=== PATIENT | male | born 1940 | race Caucasian/White ===

== ENCOUNTER → 2016-08-16 | Outpatient (CLI) | payer OTHER ==
[~2016-08-16] MED LIST: ASPI81TA28 PO; CALCTAB5 PO; CHOL200027 PO; IBUP-103 PO; SIMV40TA2 PO
[2016-08-16 13:20] VITALS: BP 145/80; PULSE 62; TEMP 36.9; O2SAT 93
--- NOTE | 2016-08-16 14:20 | Radiation Oncology Follow-Up ---
Radiation Oncology Follow-Up Date of Visit Aug 16, 2016. (Sue Aden PA-C) Reason For Visit Six-month follow-up (Sue Aden PA-C) Radiation Completion Date Salvage 09/15/15 (Sue Aden PA-C) Diagnosis (1) Prostate cancer Onset Date: 08/19/2013 Stage: ll Permanent Comment: DIAGNOSIS: Prostate, adenocarcinoma, frandy 4 + 4, prePSA 4.65, current PSA 0.08, [id number], group IIB TREATMENT: 1. Radical prostatectomy - 10/14/2013 - Dr. Brandt 2. Status post completion of salvage radiation 09/15/2015 received 6840 cGy Last Edited By: Sue Aden on Sep 21, 2015 14:38 (Sue Aden PA-C) Interim History He is doing well from urinary standpoint. He gave an AUA score of 2 today. He completed and expanded prostate cancer index composite for clinical practice and gave a score of 3 of 12 urinary incontinence symptoms. He gave a score of 0 of 12 and urinary irritation symptoms. He gave a score of 0 of 12 and bowel symptoms. He gave a score of 9 of 12 and sexual symptoms. He gave a score of 2 of 12 and hormonal vitality symptoms. His total was 14 of 60. He has had recheck PSAs. The PSA 02/18/2016 was less than 0.02. His PSA on 07/13/2016 was 0.06. His last Lupron injection was September 2015. This would have lasted for 6 months. (Sue Aedn PA-C) Allergies Coded Allergies: Propoxyphene (Verified Allergy, Unknown, chest pressure when med was stopped, 05/19/15) Home Medications Scheduled Aspirin (Aspirin Ec), 81 MG PO 3XWK Calcium (Caltrate), 600 MG PO BID Cholecalciferol (Vitamin D-3), 1 TAB PO DAILY Simvastatin (Zocor), 40 MG PO QPM Scheduled PRN Ibuprofen Tab (Advil), 400 MG PO Q8 PRN for Pain Review of Systems Gastrointestinal: Symptoms: WNL Oral: Symptoms: No Problems Respiratory: Symptoms: WNL Other Respiratory: Dry Cough after eating "hacking cough" chronic Urinary: Symptoms: Incontinence, Nocturia Comments: Nocturia x 1, Straining will cause a very small dribble, See AUA / EPIC Skin: Symptoms: No Problems (Sue Aden PA-C) Physical Exam Vital Signs Date Time Temp Pulse Resp B/P (MAP) Pulse Ox O2 Delivery O2 Flow Rate FiO2 08/16/16 13:20 36.9 62 16 145/80 93 Fatigue: None General Appearance: no apparent distress Eyes: normal inspection, EOMI ENT: normal ENT inspection, hearing grossly normal Neck: no adenopathy, thyroid normal Respiratory/Chest: lungs clear, no respiratory distress, no accessory muscle use Cardiovascular: regular rate, rhythm, no gallop, no murmur Extremities: no pedal edema Neurologic/Psychiatric: no motor/sensory deficits, alert, normal mood/affect Skin: warm/dry (Sue Aden PA-C) Additional Studies PSAs as reviewed above. (Sue Aden PA-C) Assessment & Plan Plan: Patient was seen today by Dr. Quinn. He has recheck appointment with Dr. Meredith 08/24/2016. We discussed that the PSA change may be related to the completion of hormone suppression. He'll continue follow-up PSAs every 6 months unless otherwise recommended by Dr. Meredith. We asked him to return to our office in 6 months. (Sue Aden PA-C) I agree with note created by Sue Aden PA-C. I reviewed the patient's chart and information with her. I have examined and evaluated the patient. I reviewed relevant clinical information and answered the patient's and/or family' s questions. (Veeral. Quinn MD) Total Time In Follow-Up I spent 15 minutes speaking to the patient and performing examination. I spent 15 minutes reviewing information and completing this note. (Sue Aden PA-C) I spent 15 minutes examining and counseling the patient. (Veeral. Quinn MD) Copy To Prosper Buckner M.D.; Twan Meredith M.D.
== END | disposition home or self-care (01) ==
LOC: C.ONC 13:00
PROVIDERS: ATTEND Physician Assistant Medical
DX: Z08 Encounter for follow-up examination after completed treatment for malignant neoplasm (principal); Z92.3 Personal history of irradiation; Z85.46 Personal history of malignant neoplasm of prostate

== ENCOUNTER → 2017-02-09 | Outpatient (CLI) | payer OTHER ==
[2017-02-09 13:52] VITALS: BP 141/93; PULSE 78; TEMP 37.1; O2SAT 94
--- NOTE | 2017-02-09 15:29 | Radiation Oncology Follow-Up ---
Radiation Oncology Follow-Up Date of Visit Feb 09, 2017. Reason For Visit 6 month follow-up Radiation Completion Date 09/15/15 Diagnosis (1) Prostate cancer Onset Date: 08/19/2013 Stage: ll Permanent Comment: DIAGNOSIS: Prostate, adenocarcinoma, frandy 4 + 4, prePSA 4.65, current PSA 0.08, [id number], group IIB TREATMENT: 1. Radical prostatectomy - 10/14/2013 - Dr. Brandt 2. Status post completion of salvage radiation 09/15/2015 received 6840 cGy Last Edited By: Sue Aden on Sep 21, 2015 14:38 Interim History He is doing well from urinary standpoint. He gave an AUA score of 3. He completed and expanded prostate cancer index composite for clinical practice and gave a score of 3 of 12 and urinary incontinence symptoms. He gave a score of 0 12 in urinary irritation symptoms. He is score of 0 12 in bowel symptoms. He gave a score of 10 of 12 sexual symptoms. He has score one of 12 and hormonal vitality symptoms. His total was 14 of 60. He has had recheck PSAs. There has been a steady increase in the PSA which he is concerned about. January 2016 PSA 0.28 Jun 2016 PSA 0.02 December 2016 PSA 0.12 February 2017 PSA 0.24 He has developed breast tenderness. It first started on the left side in August. It then started the early part of January on the right. The left is slightly improved. He has not palpated any masses. There is been no redness of the skin dimpling. The tenderness is at the nipple. There is been no nipple discharge or redness. His last Lupron was at the end of the radiation therapy. This was a four-month injection. This effect would have continued until December 2015. It is now over a year since completion of hormone suppression. Allergies Coded Allergies: Propoxyphene (Verified Allergy, Unknown, chest pressure when med was stopped, 05/19/15) Home Medications Scheduled Aspirin (Aspirin Ec), 81 MG PO 3XWK Calcium (Caltrate), 600 MG PO BID Cholecalciferol (Vitamin D-3), 1 TAB PO DAILY Simvastatin (Zocor), 40 MG PO QPM Scheduled PRN Ibuprofen Tab (Advil), 400 MG PO Q8 PRN for Pain Review of Systems Gastrointestinal: Symptoms: WNL Oral: Symptoms: No Problems Respiratory: Symptoms: WNL, Dry Cough Other Respiratory: Chronic dry cough - not new per patient Urinary: Symptoms: WNL, Nocturia Comments: Nocturia x 2-3, See AUA & EPIC Skin: Symptoms: No Problems Physical Exam Vital Signs Date Time Temp Pulse Resp B/P (MAP) Pulse Ox O2 Delivery O2 Flow Rate FiO2 02/09/17 13:52 37.1 78 16 141/93 94 Fatigue: None General Appearance: no apparent distress Eyes: normal inspection, EOMI ENT: normal ENT inspection, hearing grossly normal Neck: no adenopathy, thyroid normal Respiratory/Chest: lungs clear, no respiratory distress, no accessory muscle use Breast: Breast examination reveals very slight tenderness at the nipples. There are no masses and no lymphadenopathy. There is bilateral palpable breast tissue in the upper outer quadrant which is symmetric. There are no skin retractions. Cardiovascular: regular rate, rhythm, no gallop, no murmur Extremities: no pedal edema Neurologic/Psychiatric: no motor/sensory deficits, alert, normal mood/affect Skin: warm/dry Pain Management Patient Reports Pain: No Pain Management Plan He does not give the discomfort in his breasts a pain level. Imaging Imaging Studies: were reviewed Imaging Comments Present in the interim history. Assessment & Plan Plan: Continue regular follow-up with Dr. Meredith. He'll be seeing him in June. He has an order for recheck PSA. We discussed the steady rise in the PSA. He understands that the treatment will be with hormone suppression. He has had issues with the hormone suppression previously. He plans to continue with the PSAs and review this again with Dr. Meredith in June. We discussed the breast tenderness. Bilateral diagnostic mammogram was ordered. She'll be notified as to results. He was given an order for a PSA prior to his next visit in one year. We discussed that the initiation of hormone suppression will be determined by Dr. Meredith. We also discussed that radiation can be given for gynecomastia. He does not feel that the discomfort warrants any treatment at this time. Total Time In Follow-Up I spent 20 minutes speaking to the patient performing examination. I spent 15 minutes reviewing information and completeness note. Copy To Prosper Buckner M.D.; Twan Meredith M.D.
== END | disposition home or self-care (01) ==
LOC: C.ONC 12:47
PROVIDERS: ATTEND Physician Assistant Medical
DX: Z08 Encounter for follow-up examination after completed treatment for malignant neoplasm (principal); Z92.3 Personal history of irradiation; Z85.46 Personal history of malignant neoplasm of prostate

== ENCOUNTER → 2017-02-14 | Outpatient (CLI) | payer OTHER ==
--- NOTE | 2017-02-14 13:08 | MAMMOGRAPHY REPORT ---
MALE BILATERAL DIGITAL DIAGNOSTIC MAMMOGRAM TOMOSYNTHESIS WITH CAD AND TARGETED BILATERAL ULTRASOUND: 02/14/2017 CLINICAL HISTORY: 76-year-old male with a personal history of prostate cancer status post radical pro statectomy, radiation therapy and Lupron. He presents with bilateral breast pain; he noticed left br east pain in August 2016 and right breast pain and January 2017. No palpable mass, skin changes or ni pple discharge. TECHNIQUE: Breast tomosynthesis in addition to standard 2D mammography was performed. Current study was also evaluated with a Computer Aided Detection (CAD) system. COMPARISON: No prior exams were available for comparison. BREAST COMPOSITION: The breast parenchyma is nearly entirely fat. FINDINGS: There is mild to moderate glandular tissue development in each breast. There is a circumsc ribed reniform shaped mass with central lucent notch measuring 9 mm in the upper outer quadrant of th e right breast, most likely an intramammary lymph node. No suspicious mass, architectural distortion or cluster of suspicious microcalcifications is seen. No focal skin thickening or suspicious axilla ry adenopathy identified. Targeted ultrasound was performed in both breasts with particular attention to the areas of pain and in the right upper outer quadrant to assess for the probable intramammary lymph node. In the 10:00 r ight breast, 2 cm from the nipple, a morphologically normal intramammary lymph node is identified willie suring 8.5 mm, with a thin cortex measuring 1 mm. Central blood flow is documented. There is mild h ypoechoic glandular tissue in each retroareolar breast and extending into the 6:00 axis of the right breast and 3:00 axis of the left breast. No suspicious solid or cystic mass is seen bilaterally. IMPRESSION: ACR BI-RADS CATEGORY 2: BENIGN, TARGETED ULTRASOUND ACR BI-RADS CATEGORY 2: BENIGN There is mild to moderate bilateral gynecomastia and a benign intramammary lymph node in the right br east. No mammographic or targeted sonographic evidence of malignancy. Clinical follow-up is recomme nded as to possible underlying cause. These results and recommendations were discussed with the patient at the time of the exam. Approximately 10% of breast cancers are not detected with mammography. A negative mammographic report should not delay biopsy if a clinically suggestive mass is present. Sarah Meredith M.D. ay/:02/14/2017 10:19:57 [employer] Officer: Parul Tello, [facility] letter sent: Normal 02/28 BI-RADS Code: ACR BI-RADS Category 2: Benign Ultrasound BI-RADS: ACR BI-RADS Category 2: Benign
== END | disposition home or self-care (01) ==
LOC: C.MAMM 08:30
PROVIDERS: ATTEND Physician Assistant Medical
DX: N62 Hypertrophy of breast (principal); C61 Malignant neoplasm of prostate; Z79.890 Hormone replacement therapy